=== PATIENT | female | born 1985 | race Caucasian/White ===

== ENCOUNTER → 2020-12-15 | Emergency (ER) | payer OTHER ==
[~2020-12-15] VITALS: Ht 167.6 cm; Wt 63.5 kg
== END | disposition home or self-care (01) ==
LOC: ER 19:16
DX: R10.2 Pelvic and perineal pain (principal); R21 Rash and other nonspecific skin eruption

== ENCOUNTER 2021-01-13 07:39 | Emergency (ER) | payer OTHER ==
[~2021-01-13] VITALS: Ht 167.6 cm; Wt 68.0 kg
[2021-01-13] MEDS ORDERED: PRENA1 TRUE CO1 EACH PO (07:45)
== END 2021-01-13 13:45 | disposition home or self-care (01) ==
LOC: ER 07:39
DX: O03.9 Complete or unspecified spontaneous abortion without complication (principal); O26.851 Spotting complicating pregnancy, first trimester; O26.891 Other specified pregnancy related conditions, first trimester; O36.80X0 Pregnancy with inconclusive fetal viability, not applicable or unspecified; Z3A.08 8 weeks gestation of pregnancy; Z03.818 Encounter for observation for suspected exposure to other biological agents ruled out

== ENCOUNTER 2022-12-14 07:29 | Emergency (ER) | payer OTHER ==
[~2022-12-14] VITALS: Ht 167.6 cm; Wt 68.0 kg
[~2022-12-14 07:29] MED LIST: CLARITHROMYCIN250 MG PO; LEVALBUTER0.63 MG/3 IH; LEVOCETIRIZINE D5 MG PO; PRENA1 TRUE CO1 EACH PO
[2022-12-14] MEDS ORDERED: PRENATAL + DHA1 EAC1 (07:42)
[2022-12-14 09:19] LABS: HEMATOCRIT 39.2 % (36.0-45.00); HEMOGLOBIN 13.7 g/dL (12.0-15.00); MEAN CELL VOLUME 89.1 fL (80.00-100.00); MEAN CORPUSCULAR HGB CONC 34.8 g/dl (32.0-36.0); PLATELET COUNT 290 K/uL (150-450); RED CELL DISTRIBUTION WIDTH 12.9 % (11.5-14.5)
== END 2022-12-14 17:54 | disposition home or self-care (01) ==
LOC: ER 07:29
DX: J03.90 Acute tonsillitis, unspecified (principal); Z20.822 Contact with and (suspected) exposure to COVID-19

== ENCOUNTER → 2025-03-11 | Day surgery (SDC) | payer OTHER ==
[~2025-03-11] VITALS: Ht 167.6 cm; Wt 73.0 kg
[~2025-03-11] MED LIST changes: +MORPHINE SULFATE 4 MG/ML VIAL IV SCH; +POVIDONE-IODINE 118 ML BOTT TOP ONE; +PRENATAL + DHA1 EAC1; +RINGERS SOLUTION,LACTATED 1,000 ML IV SCH
--- NOTE | 2025-03-11 07:12 | NUR ---
PACIENTA REFIERE 8 SEMANAS DE EMBARAZO/ CLINICAL INVESTIGATOR REFIERE DOLOR PEVICO INTENSO-CHARLES CON LEVE SANGRADO X1. SE MIDE S/V Y SE UBICA EN CAMA. CLINICAL INVESTIGATOR REFERIDA A ER POR DR. SEGUNDO.
[2025-03-11 08:52] LABS: INR 1.06
--- NOTE | 2025-03-11 08:56 | NUR ---
PACIENTE ALERTA Y ORIENTADA X3. SE EDUCA SOBRE PROCESO DE ANDREA DE MUESTRAS, CANALIZACION Y ADMINISTRACION DE IVFS, REFIERE ENTENDER. SE EJECUTAN ORDENES BAJO MEDIDAS ASEPTICAS. SE PREPARA A PACIENTE PARA RADHA. PENDIENTE A TRASLADO A UNIDAD.
[2025-03-11 08:59] VITALS: BP 100/60; O2SAT 100
[2025-03-11 22:44] VITALS: BP 100/60; O2SAT 100
== END | disposition home or self-care (01) ==
LOC: EDSTATUS 06:51 → ER 06:51 → CIR.AMB 07:29 → ER 07:29 → CIR.AMB 07:29 → O/R 08:03 → ER 08:03 → O/R 09:23 → OB/GYN 15:34 → O/R 18:09
PROVIDERS: ATTEND Obstetrics & Gynecology
DX: O02.1 Missed abortion (principal)